=== PATIENT | male | born 1975 | race Two or more races ===

== ENCOUNTER 2017-01-05 16:04 | Emergency (ER) | payer SELFPAY | END 2017-01-05 18:03 | disposition home or self-care (01) | LOC: D.ER 16:04 | DX: M54.12 Radiculopathy, cervical region (principal); M54.16 Radiculopathy, lumbar region; E11.9 Type 2 diabetes mellitus without complications ==

== ENCOUNTER 2017-10-30 16:50 | Emergency (ER) | payer OTHER | END 2017-10-30 18:10 | disposition home or self-care (01) | LOC: D.ER 16:50 | DX: S97.81XA Crushing injury of right foot, initial encounter (principal); X58.XXXA Exposure to other specified factors, initial encounter; Y93.89 Activity, other specified; Y92.019 Unspecified place in single-family (private) house as the place of occurrence of the external cause; S92.401A Displaced unspecified fracture of right great toe, initial encounter for closed fracture; F17.200 Nicotine dependence, unspecified, uncomplicated ==